=== PATIENT | male | born 1955 | race Caucasian/White ===

== ENCOUNTER 2019-09-29 16:54 | Inpatient (IN) | payer MEDICARE ==
[~2019-09-29 16:54] MED LIST: Dexamethasone 20 MG/5 ML VIAL ONE; Glycopyrrolate 0.2 MG/ML 5 ML SYRINGE ONE; Iopamidol-370 76% 500 ML 1 ML ONE; Lidocaine 1% PF 5 ML VIAL ONE; Ondansetron PF 4 MG/2 ML Vial ONE; PHENYLEPHRINE-NS 100 MCG/ML 10 ML SYRINGE ONE; PROPOFOL 200 MG/20 ML VIAL ONE; Rocuronium Bromide 10 MG/ML (10ML VIAL) ONE; Succinylcholine Chloride 20 MG/ML 10 ml SYRINGE FS ONE
[2019-09-29] MEDS ORDERED: Adacel (T-DAP) 0.5 ML SYRINGE ONE (16:59)
[2019-09-29] MEDS ORDERED: metroNIDAZOLE 500 MG/100 ML BAG ONE (16:59)
[2019-09-29] MEDS ORDERED: Ketorolac Tromethamine 30 MG/ML VIAL ONE (17:04)
[2019-09-29] MEDS ORDERED: Fentanyl 100 MCG/2 ML VIAL ONE ×2 (17:04→21:27)
--- NOTE | 2019-09-29 17:16 | RAD ---
Chest AP view INDICATION: Chest pain COMPARISON: None FINDINGS: Lungs:No airspace consolidation is evident. There is an azygos fissure involving the right upper lobe . Cardiac silhouette:The cardiomediastinal silhouette appears within normal limits. Pulmonary vasculature:Normal Pleural spaces:No pleural effusion or pneumothorax is demonstrated. Upper abdomen:No abnormality seen. Osseous structures: No acute osseous abnormality. Additional findings:Dorsal column stimulator overlying the midthoracic spine. IMPRESSION: No acute cardiopulmonary abnormality.
--- NOTE | 2019-09-29 17:17 | RAD ---
XR Knee Rt 4 View STANDARD: 09/29/2019 5:04 PM CLINICAL INDICATION: Fall from ladder of 15 cc COMPARISON: None. FINDINGS: Bones: No acute fracture is demonstrated. Joints: No joint capsular distention. Mild osteoarthrosis of the right knee.. Soft Tissue: No acute abnormality.. IMPRESSION: No acute osseous abnormality..
--- NOTE | 2019-09-29 17:18 | RAD ---
XR Ankle Rt 3 View STANDARD INDICATION: Fall from ladder COMPARISON: None. FINDINGS: Bones: There is a heavily comminuted calcaneal fracture with impaction of the posterior subtalar join t and articular surface. There is comminution involving the lateral aspect of the calcaneal wall. No additional fractures evident. Ankle mortise: Symmetric. Talar Dome: There is a 2.9 mm osteochondral lesion involving the talar dome. Subtalar joint: As above Visualized hindfoot: As above Periarticular soft tissues: Soft tissue swelling of the posterior hindfoot IMPRESSION: 1. Comminuted, impacted intra-articular calcaneal fracture.
[2019-09-29 17:23] LABS: #Eosinphils 0.1 thou/uL (0.0-0.7); #Lymphocytes 1.3 thou/uL (1.20-3.40); #Monocytes 0.5 thou/uL (0.11-0.59); #Neutrophils 8.3 thou/uL (1.40-6.50); %Basophils 0.2 % (0.0-1.0); %Eosinophils 1.2 % (0.0-10.0); %Lymphocytes 12.4 % (21.0-51.0); %Monocytes 4.6 % (0.0-10.0); %Neutrophils 81.6 % (42.0-75.0); Hemoglobin 12.4 g/dL (14.0-18.0); Mean Corpuscular Hemoglobin 28.7 pg (27.0-31.0); Platelet Count 278 thou/uL (130-400); RBC Distribution Width 12.3 % (11.5-14.5); White Blood Cell (WBC) Count 10.1 thou/uL (4.8-10.8)
[2019-09-29] MEDS ORDERED: diphenhydrAMINE 50 MG/ML VIAL ONE (17:45)
[2019-09-29 17:50] LABS: ALT (SGPT) 18 U/L (8-55); AST (SGOT) 17 U/L (5-34); Albumin 4.1 g/dL (3.4-4.8); Alkaline Phosphatase 74 U/L (40-110); Anion Gap 11 mmol/L (10-20); BUN (Urea Nitrogen) 15 mg/dL (8.4-25.7); Bilirubin, Total 0.3 mg/dL (0.2-1.2); Calc. Creatinine Clearance 0 mL/min (70-130); Calcium 9.2 mg/dL (7.8-10.44); Carbon Dioxide 23 mmol/L (23-31); Chloride 111 mmol/L (98-107); Estimated GFR-MDRD 77; Globulin 2.7 g/dL (2.4-3.5); Glucose 110 mg/dL (80-115); Potassium 3.8 mmol/L (3.5-5.1); Protein, Total 6.8 g/dL (5.8-8.1); Sodium 141 mmol/L (136-145)
[2019-09-29] MEDS ORDERED: Insulin Regular 300 UNITS/3 ML VIAL SC PRN (18:08)
[2019-09-29] MEDS ORDERED: Dextrose 50% Abboject 50 ML SYRINGE SLOW IVP PRN (18:08)
[2019-09-29] MEDS ORDERED: Dextrose 5% in Water 1,000 ML IV PRN (18:08)
[2019-09-29] MEDS ORDERED: Ondansetron PF 4 MG/2 ML Vial IVP PRN ×3 (18:08→21:44)
[2019-09-29] MEDS ORDERED: traMADol HCl 50 MG TAB PO PRN ×2 (18:11)
--- NOTE | 2019-09-29 18:29 | CT ---
CT Brain WO Con: 09/29/2019 5:04 PM CLINICAL HISTORY: Fall from ladder 15 feet. IMAGING TECHNIQUE: Multiple CT images were obtained of the brain without IV contrast. COMPARISON: None. FINDINGS: Brain: No acute infarct or hemorrhage is evident. No midline shift. Ventricles: Normal. No hydrocephalus.. Skull: Intact.. Visualized Paranasal sinuses: Clear.. Mastoid air cells:Clear. Extracranial soft tissues:Normal. IMPRESSION: No acute intracranial abnormality.
--- NOTE | 2019-09-29 18:31 | CT ---
CT Cervical Spine WO Con Indication: Fall with neck pain COMPARISON: None. FINDINGS: Fracture: None. Spinal alignment: No acute malalignment. Craniocervical junction: Within normal limits. Vertebral body heights: Maintained. Cervical spine degenerative change: Mild multilevel cervical spondylosis Lung apices: Clear. IMPRESSION: No acute osseous abnormality.
--- NOTE | 2019-09-29 18:35 | RAD ---
LEFT TIBIA AND FIBULA TWO VIEW: 09/29/19 HISTORY: Fall from ladder. COMPARISON: None. FINDINGS: Transversely oriented fracture of the distal tibia and fibula metaphysis with one half shaft width la teral displacement. There is also a vertical component of the fracture through the distal tibia in th e coronal plane extending to the articular surface. Also a medial malleolar fracture. IMPRESSION: Complex distal tib/fib fracture as described with intra-articular component. POS: HOME
--- NOTE | 2019-09-29 18:38 | CT ---
CT OF THE CHEST, ABDOMEN AND PELVIS WITH IV CONTRAST INDICATION: Fall 15 feet from ladder COMPARISON: None. FINDINGS: CHEST: Lungs:There is a grouping of noncalcified pulmonary nodules within the subpleural location involving the anterior right upper lobe on image 18 series 3. The nodules measure between 4 to 6 mm in size. No additional suspicious pulmonary nodule is evident. There is an azygos lobe. Heart and great vessels:No acute traumatic injury seen. Pleural space: No pneumothorax or effusion. Additional findings: ABDOMEN: Liver:Normal appearing. Spleen:Splenic granulomata. No acute injury. Pancreas:Normal appearing. Adrenal Glands:Normal appearing. Kidneys:Normal appearing. Aorta:There are mild vascular calcifications seen involving the visualized vasculature. Additional findings: Cholecystectomy PELVIS: Bowel:Normal appearing. Bladder:Normal appearing. Reproductive structures:Surgically absent Rectum and perirectal soft tissues:Normal appearing. Additional findings: Mild nonspecific stranding within the central mesentery with shotty appearing l ymph nodes. OSSEOUS STRUCTURES: Postsurgical change of a posterolateral fusion at L4-5. There is a dorsal column stimulator projectin g at T7. No acute fracture or subluxation demonstrated. There is scattered degenerative and osteoarthritic changes. IMPRESSION: 1. No acute traumatic injury seen involving the chest, abdomen or pelvis. 2. Right upper lobe pulmonary nodules. Follow-up CT examination in 6 months is recommended to documen t stability. 3. Postsurgical change of cholecystectomy, prostatectomy and lower back surgery. 4. Nonspecific stranding within the central mesentery with shotty appearing lymph nodes may reflect s clerosing mesenteritis. 5. Findings concerning the trauma packet were called to Dr. Arce at 6:34 PM on September 29, 2019.
[2019-09-29] MEDS ORDERED: Neomycin-Polymyxin 1 ML AMP ONE ×2 (18:45→20:14)
[2019-09-29] MEDS ORDERED: Fentanyl 250 MCG/5 ML VIAL ONE (18:48)
--- NOTE | 2019-09-29 18:52 | PRG ---
DATE OF SERVICE: 09/29/2019 Rigo Reardon is a 63-year-old male, fell off a ladder, suffered an open tib-fib, left distally, and a right calcaneal fracture. He has some thoracolumbar pain. He is undergoing CAT scan for that. He denies any abdominal pain. He did not lose consciousness. The patient is hemodynamically stable. Dr. Rajat Levin has seen him regarding ORIF of his femur and treatment of his calcaneal fracture. Await CAT scan results. His hemoglobin is 12. His has GCS 15. I have discussed with JOEL Gonzalez, Trauma, and I agree with her assessment and plan. Job ID: [id number]
[2019-09-29] MEDS ORDERED: EPINEPHrine 1 MG/ML AMP ONE (20:50)
[2019-09-29] MEDS ORDERED: Bupivacaine PF 0.5% 30 ML VIAL ONE (20:50)
--- NOTE | 2019-09-29 21:03 | RAD ---
EXAM: XR Ankle Lt 3 View STANDARD DATE: 09/29/2019 12:00 AM INDICATION: Fracture repair of the left ankle COMPARISON: Left tibia-fibula radiograph dated September 29, 2019 FINDING: Since the comparison examination there is an interval reduction internal fixation of the di stal tibial metadiaphyseal fracture. Fracture alignment is near anatomic. There is improved alignment of the comminuted distal fibular shaft fracture. There is partial visualization of instrume ntation involving the calcaneus. Total fluoroscopic time was 36.4 seconds. Total exposure was 1.38 mGy. IMPRESSION:ORIF of distal left tibia fracture.
[2019-09-29] MEDS ORDERED: PACU-Morphine 4MG/ML VIAL SLOW IVP PRN (21:16)
[2019-09-29] MEDS ORDERED: Morphine Sulfate 2 MG/ML SYRINGE SLOW IVP PRN (21:16)
[2019-09-29] MEDS ORDERED: Meperidine HCl/PF 25 MG/ML VIAL SLOW IVP PRN (21:16)
[2019-09-29] MEDS ORDERED: HYDROmorphone 2 MG/ML VIAL SLOW IVP PRN (21:16)
[2019-09-29] MEDS ORDERED: Ketorolac Tromethamine 30 MG/ML VIAL IVP PRN (21:16)
[2019-09-29] MEDS ORDERED: Promethazine HCl 25 MG/ML VIAL IM PRN ×2 (21:16→21:44)
[2019-09-29] MEDS ORDERED: Ondansetron HCl/PF 4 MG/2 ML Vial IVP PRN (21:16)
[2019-09-29] MEDS ORDERED: Promethazine HCl 25 MG/ML VIAL SLOW IVP PRN (21:16)
[2019-09-29] MEDS ORDERED: Milk Of Magnesia 30 ML UDCUP PO PRN (21:31)
[2019-09-29] MEDS ORDERED: Fleet Enema 133 ML BOT PR PRN (21:31)
[2019-09-29] MEDS ORDERED: Bisacodyl 10 MG SUPP PR PRN (21:31)
[2019-09-29] MEDS ORDERED: Ondansetron ODT 4 MG TAB PO PRN (21:31)
[2019-09-29] MEDS ORDERED: Cepastat Lozenges 1 LOZ PO PRN (21:31)
[2019-09-29] MEDS ORDERED: HYDROmorphone 2 MG/ML VIAL ONE (21:36)
[2019-09-29] MEDS ORDERED: Naloxone HCl 0.4 mg/ml Vial IV PRN (21:44)
[2019-09-29] MEDS ORDERED: Zolpidem Tartrate 5 MG TAB PO PRN (21:44)
[2019-09-29] MEDS ORDERED: diphenhydrAMINE 25 MG CAP PO PRN (21:44)
[2019-09-29] MEDS ORDERED: diphenhydrAMINE 50 MG/ML VIAL IVP PRN (21:44)
[2019-09-29] MEDS ORDERED: fentaNYL Citrate/PF 2,000 MCG in Sodium Chloride 0.9% 60 ML IV PRN (21:44)
[2019-09-29] MEDS ORDERED: diphenhydrAMINE 50 MG/ML VIAL IM PRN (21:44)
[2019-09-29] MEDS ORDERED: Communication Order-Pharmacy FS SCH (21:45)
[2019-09-29] MEDS ORDERED: HYDROcodone/Acetaminophen 10/325 mg Tablet PO PRN (22:59)
[2019-09-29] MEDS: Famotidine/PF 20 mg/2ml Vial SLOW IVP SCH (23:17)
[2019-09-29] MEDS: Gabapentin 300 MG CAP PO SCH (23:18)
[2019-09-29] MEDS: Senokot S 8.6-50 MG TAB PO SCH (23:18)
[2019-09-29 23:20] VITALS: BMI 33.4
[2019-09-30] MEDS: Sodium Chloride 0.9% 1,000 ML IV SCH ×4 (00:06→19:12)
[2019-09-30] MEDS: Ibuprofen 600 MG TAB PO SCH ×4 (00:07→17:43)
[2019-09-30] MEDS: Acetaminophen 500 MG TAB PO SCH ×4 (00:07→17:43)
[2019-09-30] MEDS: Ketorolac Tromethamine 30 MG/ML VIAL IVP SCH ×4 (00:07→17:44)
[2019-09-30] MEDS: CEFAZOLIN 2 GM in Premix Bag 1 BAG IVPB SCH ×3 (00:08→17:43)
--- NOTE | 2019-09-30 01:19 | OP ---
DATE OF PROCEDURE: 09/29/2019 INDICATIONS: Mr. Reardon is a 63-year-old male who fell 15 feet off a ladder and had immediate pain, deformity with a fracture of the left distal tibia, open and protruding through the medial aspect of the left leg. He also had considerable pain in the right heel area. The patient was life-flighted to the emergency room. X-ray showed fracture of the left distal tibia with intra-articular extension of the distal tibia fracture into the ankle joint and a fracture of the right calcaneus. The patient was given IV antibiotics in the emergency room and is now brought to the OR. PREOPERATIVE DIAGNOSIS: Open left intra-articular fracture of the distal tibia with comminution. POSTOPERATIVE DIAGNOSIS: Open left intra-articular fracture of the distal tibia with comminution. PROCEDURES PERFORMED: 1. Irrigation and debridement of the left leg and tibia using Pulsavac. 2. Open reduction and internal fixation of the left distal tibia. ANESTHESIA: General. DESCRIPTION OF PROCEDURE: The patient was given preoperative IV antibiotics. He was taken to the operating room. Satisfactory general anesthesia was performed. The left lower extremity was sterilely prepped and draped in usual fashion. After exsanguination, tourniquet at the left thigh was raised to 300 mmHg. The patient had an open wound on the medial aspect of the left lower leg. It was extended from that laceration down to the medial malleolar area. This additional incision was approximately 3 inches in length. The initial open wound was approximately 7 inches in length. There was some debris in the wound and the portion of the tibia that was protruding through the skin had some comminution. The wound was copiously irrigated with antibiotic solution using the high-speed application integrator. The saphenous vein had been torn and it was tied off with suture. A bone clamp was placed from anterior to posterior because of an intra-articular fracture of the distal tibia that divided the distal tibia into anterior and posterior half and extended all the way into the ankle joint. The bone clamp was used to hold and reduce and then internally fix using 4.0 cannulated screws from anterior to posterior. This was all performed under fluoroscopic visualization using C-arm. The distal tibia was then reduced with the distal shaft and initially was temporarily fixated with a 4-hole Synthes distal tibial locking plate. Morselized allograft bone graft was then placed into the defect on the medial aspect of the distal tibial shaft and the 4-hole plate was then internally fixed initially using a 3.5 cortical screw to bring the plate up to the medial aspect of the tibia. Six of the 2.7 locking screws were placed distally and three of 3.5 locking screws were placed into the shaft. Again, this was all performed under fluoroscopic visualization, which showed good alignment of the distal tibia and proper placement of the plate and screws. There was significant comminution of the distal fibula, but the fragments were in adequate alignment and did not feel that it is warranted to open the lateral aspect since he already had such a large wound medially. The wound again was irrigated and then closed using 0 Vicryl for the fat and subcutaneous tissue, and skin was closed with skin nereyda. The wound was then infiltrated with 0.5% Marcaine with epinephrine. A total of 30 mL was used around the wound for postoperative analgesia. Sterile dressing was applied. Tourniquet was released. The patient was placed in a tall boot. He was awakened, extubated, and transferred to recovery room in stable condition. ESTIMATED BLOOD LOSS: 100 mL. COMPLICATIONS: None. Job ID: [id number]
[2019-09-30 05:59] LABS: Mean Corpuscular HGB CONC 32.9 g/dL (32.0-36.0); Mean Corpuscular Hemoglobin 29.1 pg (27.0-31.0); Mean Corpuscular Volume 88.5 fL (78.0-98.0); Mean Platelet Volume 8.2 fL (7.4-10.4); Platelet Count 249 thou/uL (130-400); RBC Distribution Width 12.5 % (11.5-14.5); Red Blood Cell (RBC) Count 3.78 mill/uL (4.70-6.10); White Blood Cell (WBC) Count 12.8 thou/uL (4.8-10.8)
[2019-09-30] MEDS: Aspirin 325 MG TAB PO SCH ×2 (08:35→20:15)
[2019-09-30] MEDS: Famotidine/PF 20 mg/2ml Vial SLOW IVP SCH ×2 (08:35→20:15)
[2019-09-30] MEDS: Ferrous Gluconate 324 MG TAB PO SCH ×2 (08:35→20:16)
[2019-09-30] MEDS: Gabapentin 300 MG CAP PO SCH ×2 (08:36→20:16)
[2019-09-30] MEDS: Multivitamin W/ Minerals 1 TAB PO SCH (08:36)
[2019-09-30] MEDS: Polyethylene Glycol 3350 17 GM Packet PO SCH (08:38)
[2019-09-30] MEDS: Senokot S 8.6-50 MG TAB PO SCH ×4 (08:38→20:16)
--- NOTE | 2019-09-30 12:33 | PRG ---
DATE OF SERVICE: 09/30/2019 SUBJECTIVE: Mr. Reardon is a 63-year-old male, presented to ED after a fall with a height of 15 feet. The patient sustained left open tib-fib fracture and right calcaneus fracture. The patient underwent ORIF of both fracture. Postop day 1 today. Postop, the patient reports pain is well controlled. He tolerated with regular diet. He developed no fever or shortness of breath, not yet have bowel. PHYSICAL EXAMINATION: GENERAL: Currently, the patient is lying in bed comfortable with no acute respiratory distress. VITAL SIGNS: Stable. LUNGS: Clear bilaterally. HEART: Regular rate and rhythm. ABDOMEN: Soft and nondistended. EXTREMITIES: Bilateral lower extremity postop dressing and splint intact. Dry, clean, intact. Toe is pink. Sensation intact. The patient can wiggle toe bilaterally with no acute difficulty. ASSESSMENT: 1. Status post fall from 15 feet. 2. Left open tib-fib fracture, status post open reduction and internal fixation of left open tib-fib fracture, postop day 1. 3. Right calcaneus fracture, status post open reduction and internal fixation of right calcaneus fracture, postop day 1. 4. Acute traumatic pain due to above, improved. PLAN: Continue supportive care. Continue pain control. Continue DVT prophylaxis. The patient will be working with PT/OT today. Anticipate placement in rehabilitation facility. Job ID: [id number]
[2019-09-30] MEDS: Enoxaparin Sodium 40 MG/0.4 ML SYRINGE SC SCH (20:15)
[2019-10-01] MEDS: Ibuprofen 600 MG TAB PO SCH ×4 (00:38→17:12)
[2019-10-01] MEDS: Sodium Chloride 0.9% 1,000 ML IV SCH (00:40)
[2019-10-01] MEDS: Acetaminophen 500 MG TAB PO SCH ×5 (00:40→17:36)
[2019-10-01] MEDS: CEFAZOLIN 2 GM in Premix Bag 1 BAG IVPB SCH ×2 (00:40→08:25)
[2019-10-01 05:11] LABS: #Eosinphils 0.2 thou/uL (0.0-0.7); #Lymphocytes 1.3 thou/uL (1.20-3.40); #Monocytes 0.5 thou/uL (0.11-0.59); #Neutrophils 5.3 thou/uL (1.40-6.50); %Basophils 0.3 % (0.0-1.0); %Eosinophils 2.8 % (0.0-10.0); %Lymphocytes 17.4 % (21.0-51.0); %Neutrophils 72.5 % (42.0-75.0); Hemoglobin 9.2 g/dL (14.0-18.0); Mean Corpuscular HGB CONC 32.7 g/dL (32.0-36.0); Mean Corpuscular Hemoglobin 29.3 pg (27.0-31.0); Mean Corpuscular Volume 89.6 fL (78.0-98.0); Platelet Count 202 thou/uL (130-400); RBC Distribution Width 12.4 % (11.5-14.5); Red Blood Cell (RBC) Count 3.14 mill/uL (4.70-6.10); White Blood Cell (WBC) Count 7.3 thou/uL (4.8-10.8)
[2019-10-01 05:32] LABS: Magnesium 2.1 mg/dL (1.6-2.6); Phosphorus 2.6 mg/dL (2.3-4.7)
[2019-10-01 05:51] LABS: Anion Gap 11 mmol/L (10-20); BUN (Urea Nitrogen) 12 mg/dL (8.4-25.7); Calc. Creatinine Clearance 150 mL/min (70-130); Calcium 8.4 mg/dL (7.8-10.44); Carbon Dioxide 24 mmol/L (23-31); Chloride 111 mmol/L (98-107); Estimated GFR-MDRD Greater than 90; Glucose 133 mg/dL (80-115); Potassium 3.8 mmol/L (3.5-5.1); Sodium 142 mmol/L (136-145)
--- NOTE | 2019-10-01 05:55 | PRG ---
DATE OF SERVICE: 10/01/2019 SUBJECTIVE: The patient is currently on the surgical floor. He is status post open reduction and internal fixation of a left open tib-fib fracture and closed treatment of the right calcaneus fracture. The patient is currently on the surgical floor. He is doing well. His pain is controlled. He is tolerating a diet, and he has begun working with Physical and Occupational Therapy. There was noted on review of his medications that he may have received doses of both ibuprofen and Toradol, in light of that, we will continue IV hydration, and check his renal status. This is addressed with the nurses also. PHYSICAL EXAMINATION: VITAL SIGNS: Stable. The patient is afebrile. GENERAL: The patient is resting comfortably in bed. He appears in no distress. RESPIRATORY: His respirations are nonlabored. His postop dressing is clean, dry, and intact. ASSESSMENT: 1. Status post fall from approximately 15 feet. 2. Status post irrigation, open reduction and internal fixation of left open tib-fib fracture. 3. Status post splinting of right calcaneus fracture. PLAN: Plan will be to continue supportive care. Check his labs this morning. Encourage physical and occupational therapy as much as possible in light of the patient being nonweightbearing on both lower extremities. Placement will be discussed. Job ID: [id number]
[2019-10-01] MEDS ORDERED: Sodium Chloride 0.9% 1,000 ML IV SCH (06:12)
[2019-10-01] MEDS: Senokot S 8.6-50 MG TAB PO SCH ×4 (08:24→20:01)
[2019-10-01] MEDS: Multivitamin W/ Minerals 1 TAB PO SCH (08:24)
[2019-10-01] MEDS: Gabapentin 300 MG CAP PO SCH ×2 (08:25→20:01)
[2019-10-01] MEDS: Ferrous Gluconate 324 MG TAB PO SCH ×2 (08:25→20:00)
[2019-10-01] MEDS: Polyethylene Glycol 3350 17 GM Packet PO SCH (08:25)
[2019-10-01] MEDS: Famotidine/PF 20 mg/2ml Vial SLOW IVP SCH ×2 (08:25→20:00)
[2019-10-01] MEDS: Aspirin 325 MG TAB PO SCH ×2 (08:25→20:00)
[2019-10-01] MEDS ORDERED: Bisacodyl 10 MG SUPP PR SCH (09:45)
--- NOTE | 2019-10-01 12:28 | PRG ---
DATE OF SERVICE: 10/01/2019 SUBJECTIVE: Mr. Reardon is a 63-year-old male, presented to the ED after a fall from the height of 15 feet. He sustained left open tib-fib fracture and right calcaneus fracture. The patient underwent ORIF of bilateral lower extremity fractures, postop day 2. Today postoperatively, the patient reports pain is well controlled, tolerating regular diet. Developed no fever or shortness of breath. Urine is adequate and still not yet had bowel. OBJECTIVE: GENERAL: The patient is lying in bed, comfortable, with no acute respiratory distress. VITAL SIGNS: Temperature 98, heart rate 78, O2 saturation 94% on room air, respiratory rate 18, blood pressure 145/78. LUNGS: Clear bilaterally. HEART: Regular rate and rhythm. ABDOMEN: Soft and nondistended. EXTREMITIES: Bilateral lower extremity postop dressing, in a splint, dry, clean, and intact. Neurovascularly intact x4. ASSESSMENT: 1. Status post fall from 15 feet, left open tib-fib fracture, status post open reduction and internal fixation of left open tib-fib fracture. 2. Right calcaneus fracture, status post open reduction and internal fixation of right calcaneus fracture. 3. Acute traumatic pain, improved. PLAN: Continue supportive care. Continue pain control. Continue DVT prophylaxis. Placement in rehabilitation facility is pending. The patient will have lactulose today to promote bowel function. Job ID: [id number]
[2019-10-01] MEDS: HYDROcodone/Acetaminophen 10/325 mg Tablet PO PRN (17:42)
[2019-10-01] MEDS: Enoxaparin Sodium 40 MG/0.4 ML SYRINGE SC SCH (20:00)
--- NOTE | 2019-10-01 20:00 | PRG ---
DATE OF SERVICE: 10/01/2019 SUBJECTIVE: The patient is 2 days status post irrigation and debridement and open reduction and internal fixation of the left distal tibia fracture. The patient also sustained a right calcaneal fracture that did not require surgery. He has been working with physical therapy to use a transferring board since he needs to be nonweightbearing on both lower extremities. The patient does complain of constipation. OBJECTIVE: VITAL SIGNS: Temperature 97.7, pulse 80, respiratory rate 18, blood pressure 137/75. LABORATORY DATA: This morning, hemoglobin 9.2, hematocrit 28.1. Both feet are neurovascularly intact. The patient will continue to work with physical therapy, learning how to transfer, in and out of bed, in a wheelchair. He needs to continue to be nonweightbearing on both feet. Job ID: [id number]
[2019-10-01] MEDS ORDERED: DEXTROAMPHETAMINE PO SCH (21:00)
[2019-10-01] MEDS ORDERED: AMPHETAMINE PO SCH (21:00)
--- NOTE | 2019-10-02 02:19 | PRG ---
DATE OF SERVICE: 10/02/2019 SUBJECTIVE: The patient remains on the surgical floor. He is status post fall from approximately 15 feet, which he sustained an open left tib-fib fracture and a right calcaneus fracture. He has undergone open reduction and internal fixation and irrigation and debridement of his open tib-fib fracture and his calcaneus is being treated nonoperatively. Unfortunately, he is nonweightbearing on both extremities, but he has been working with physical therapy as much as possible. The nurses report that his pain is controlled, and he is tolerating a diet. PHYSICAL EXAMINATION: VITAL SIGNS: Stable. The patient is afebrile. GENERAL: The patient is asleep in bed. He appears in no distress. RESPIRATORY: His respirations are nonlabored. I did not awaken him for exam. ASSESSMENT: 1. Status post fall from approximately 15 feet. 2. Status post irrigation, open reduction and internal fixation of left open tib-fib fracture. 3. Status post right calcaneus fracture, treated conservatively. PLAN: Will be to continue supportive care with physical and occupational therapy and discuss placement options. Job ID: [id number]
[2019-10-02] MEDS: Ibuprofen 600 MG TAB PO SCH ×2 (02:53→09:38)
[2019-10-02 05:04] LABS: #Eosinphils 0.3 thou/uL (0.0-0.7); #Lymphocytes 0.9 thou/uL (1.20-3.40); #Monocytes 0.5 thou/uL (0.11-0.59); #Neutrophils 5.5 thou/uL (1.40-6.50); %Basophils 0.4 % (0.0-1.0); %Eosinophils 4.1 % (0.0-10.0); %Lymphocytes 12.8 % (21.0-51.0); %Monocytes 7.2 % (0.0-10.0); %Neutrophils 75.5 % (42.0-75.0); Hemoglobin 9.6 g/dL (14.0-18.0); Mean Corpuscular HGB CONC 32.5 g/dL (32.0-36.0); Mean Corpuscular Volume 89.2 fL (78.0-98.0); Mean Platelet Volume 7.8 fL (7.4-10.4); Platelet Count 212 thou/uL (130-400); RBC Distribution Width 12.5 % (11.5-14.5); Red Blood Cell (RBC) Count 3.31 mill/uL (4.70-6.10); White Blood Cell (WBC) Count 7.2 thou/uL (4.8-10.8)
[2019-10-02 05:22] LABS: Anion Gap 10 mmol/L (10-20); BUN (Urea Nitrogen) 8 mg/dL (8.4-25.7); Calc. Creatinine Clearance 168 mL/min (70-130); Calcium 8.8 mg/dL (7.8-10.44); Carbon Dioxide 27 mmol/L (23-31); Chloride 105 mmol/L (98-107); Estimated GFR-MDRD Greater than 90; Glucose 102 mg/dL (80-115); Phosphorus 2.5 mg/dL (2.3-4.7); Potassium 3.4 mmol/L (3.5-5.1); Sodium 139 mmol/L (136-145)
[2019-10-02] MEDS: AMPHETAMINE PO SCH ×2 (05:49→16:05)
[2019-10-02] MEDS: DEXTROAMPHETAMINE PO SCH ×2 (05:49→16:05)
[2019-10-02] MEDS: Acetaminophen 500 MG TAB PO SCH ×2 (05:49→11:56)
[2019-10-02] MEDS: HYDROcodone/Acetaminophen 10/325 mg Tablet PO PRN (06:13)
--- NOTE | 2019-10-02 07:24 | HP ---
REQUESTING PHYSICIAN: Geronimo Arce DO CONSULTING PHYSICIAN: Dr. Levin. ATTENDING PHYSICIAN: Dr. Medley. HISTORY OF PRESENT ILLNESS: Mr. Reardon is a 63-year-old male, coming to the ED after an incident falling from a ladder with a height of approximately 15 feet. The patient reports he was climbing on a ladder at the height of 15 feet, lost his balance, and fell on his feet. After the fall, no loss of consciousness, pain of bilateral lower extremity. No back pain at that time. He did not hit his head or other parts of his body. Upon arrival in the ED, the patient is alert, awake, GCS 15. Vital signs stable. Complain pain of bilateral lower extremity. REVIEW OF SYSTEMS: Noncontributory except per HPI. PAST MEDICAL HISTORY: Includes PTSD, anxiety. PAST SURGICAL HISTORY: Right hernia repair, prostate cancer. SOCIAL HISTORY: The patient lives at home with family. Denies drug use. Denies alcohol and denies smoking. PHYSICAL EXAMINATION: GENERAL: The patient lying in bed comfortable. No acute respiratory distress. SKIN: [place]. HEENT: Atraumatic. No bruising. No tender to palpation. No bleeding. Pupil 3 mm, reactive to light, equal bilaterally. NECK: Trachea midline. No tender to palpation. CHEST: No bruising. No crepitus. No tender to palpation. LUNGS: Clear bilaterally. HEART: Regular rate and rhythm. ABDOMEN: Soft, nondistended. No rebound. No tender to palpation. Bowel sounds active. PELVIS: Stable. EXTREMITIES: Bilateral lower extremity is on splint, dry, and intact. Sensation of bilateral toe is intact. Toe bilateral pink. Capillary refill is normal. Upper extremity, neurovascularly intact x2. NEUROLOGIC: No focal neurologic deficits. LABORATORY DATA: Initial workup show CT scan of cervical spine, no acute abnormalities. CT scan of brain, no acute abnormality. X-ray of ankle, right, show comminuted, impacted, intra-articular calcaneal fracture. Chest x-ray, no acute abnormality. ASSESSMENT: 1. Status post fall from 15 feet. 2. Complex distal tibia-fibula fracture. 3. Right comminuted impacted intra-articular calcaneal fracture. PLAN: The patient will go to the OR with orthopedic Dr. Levin after this dictation. The patient will be admitted to [facility] after surgery for pain control. DVT prophylaxis, gastritis prophylaxis. The patient will be working with PT/OT tomorrow. Anticipate placement in rehabilitation facility. Job ID: [id number]
[2019-10-02] MEDS ORDERED: Losartan 25 MG TAB PO SCH (09:00)
[2019-10-02] MEDS ORDERED: Escitalopram Oxalate 20 mg Tablet PO SCH (09:00)
[2019-10-02] MEDS ORDERED: Thyroid 60 MG TAB PO SCH (09:00)
[2019-10-02] MEDS ORDERED: Allopurinol 100 MG TAB PO SCH (09:00)
[2019-10-02] MEDS: Multivitamin W/ Minerals 1 TAB PO SCH (09:37)
[2019-10-02] MEDS: Gabapentin 300 MG CAP PO SCH (09:37)
[2019-10-02] MEDS: Aspirin 325 MG TAB PO SCH (09:37)
[2019-10-02] MEDS: Polyethylene Glycol 3350 17 GM Packet PO SCH (09:38)
[2019-10-02] MEDS: Senokot S 8.6-50 MG TAB PO SCH ×2 (09:38→09:46)
[2019-10-02] MEDS: Ferrous Gluconate 324 MG TAB PO SCH (09:39)
[2019-10-02] MEDS: Famotidine/PF 20 mg/2ml Vial SLOW IVP SCH (09:39)
[2019-10-02] MEDS ORDERED: Ibuprofen 800 MG TAB PO PRN (09:55)
[2019-10-02 15:34] VITALS: BP 150/78; TEMP 98.1
[2019-10-02] MEDS ORDERED: Rosuvastatin 10 MG TAB PO SCH (21:00)
--- NOTE | 2019-10-03 05:21 | DIS ---
DATE OF ADMISSION: 09/29/2019 DATE OF DISCHARGE: 10/02/2019 ADMISSION DIAGNOSES: 1. Status post fall from 15 feet. 2. Left open tib-fib fracture. 3. Right calcaneus fracture. 4. History of hypertension and gout. DISCHARGE DIAGNOSES: 1. Status post fall from 15 feet ladder. 2. Left open tib-fib fracture, status post open reduction and internal fixation of left open tib-fib fracture. 3. Right calcaneus fracture, status post open reduction and internal fixation of right calcaneus fracture. 4. History of hypertension and gout. CONSULTING PHYSICIAN: Dr. Levin. PROCEDURE: Irrigation and debridement of the left leg and open reduction and internal fixation of left distal tibia. HOSPITAL COURSE: Mr. Reardon is a 63-year-old male, who presented to the ED after a fall from a 15 feet ladder. The patient sustained left open tib-fib fracture and right calcaneus fracture. The patient underwent ORIF of left tib-fib fracture, right calcaneus fracture is treated conservatively. The patient tolerated the procedure well. Postop, the patient reports he has been doing good. Pain is well controlled. He is able to work with PT/OT. He tolerated his regular diet. He developed no fever or shortness of breath and his urine is adequate. His vital signs have been stable. PHYSICAL EXAMINATION: GENERAL: The patient is lying in bed comfortable with no acute respiratory distress. VITAL SIGNS: Temperature 98.6, heart rate 83, respiratory rate 18, O2 saturation 95% on room air, and blood pressure 151/81. LUNGS: Clear bilaterally. HEART: Regular rate and rhythm. ABDOMEN: Soft and nondistended. EXTREMITIES: Left lower extremity postop dressing clean, dry, intact. Right calcaneus fracture, this is on boot. DISCHARGE DISPOSITION: Home with home health. DISCHARGE CONDITION: Fair. DISCHARGE INSTRUCTIONS: The patient is to take medication as directed. Encourage activity. The patient is to see Dr. Levin in 10 days. The patient is to have regular diet. The patient is to be nonweightbearing of bilateral lower extremity. DISCHARGE MEDICATIONS: Tramadol, gabapentin, and aspirin. Resume all home medications. Job ID: [id number]
== END 2019-10-02 18:13 | disposition home health service (06) | DRG 494 ==
LOC: ERS 16:54 → SURG A 18:24 → SDC/OP 18:48 → SURG A 22:42
PROVIDERS: ADMIT Specialist; ATTEND Specialist
PROC: 0QSH04Z Reposition Left Tibia with Internal Fixation Device, Open Approach (ICD-10-PCS; principal; 2019-09-29)
DX: S82.252B Displaced comminuted fracture of shaft of left tibia, initial encounter for open fracture type I or II (principal); S92.061A Displaced intraarticular fracture of right calcaneus, initial encounter for closed fracture; W11.XXXA Fall on and from ladder, initial encounter; F43.10 Post-traumatic stress disorder, unspecified; F41.9 Anxiety disorder, unspecified; I10 Essential (primary) hypertension; E78.5 Hyperlipidemia, unspecified; E03.9 Hypothyroidism, unspecified; E66.01 Morbid (severe) obesity due to excess calories; M10.9 Gout, unspecified; Z85.46 Personal history of malignant neoplasm of prostate; Z68.33 Body mass index [BMI] 33.0-33.9, adult
CPT/HCPCS: 27788; 27825; 28400; 36415; 36416; 70450; 71045; 71260; 72125; 74177; 76000; 80048; 80053; 83735; 84100; 85025; 85027; 90471; 90715; 93005; 96365; 96374; 96375; 99152; 99153; C1713; C1769; G0390; J0171; J0690; J1100; J1170; J1200; J1650; J1885; J1956; J2001; J2405; J2704; J3010; J3370; J3490; Q9967; S0020; S0028

== ENCOUNTER 2019-10-17 21:57 | Inpatient (IN) | payer MEDICARE ==
[2019-10-17 22:45] LABS: #Basophils 0.1 thou/uL (0.0-0.2); #Eosinphils 0.4 thou/uL (0.0-0.7); #Lymphocytes 1.9 thou/uL (1.20-3.40); #Monocytes 0.4 thou/uL (0.11-0.59); #Neutrophils 5.4 thou/uL (1.40-6.50); %Basophils 1.2 % (0.0-1.0); %Eosinophils 4.6 % (0.0-10.0); %Lymphocytes 22.7 % (21.0-51.0); %Monocytes 5.2 % (0.0-10.0); %Neutrophils 66.3 % (42.0-75.0); Hemoglobin 11.4 g/dL (14.0-18.0); Mean Corpuscular HGB CONC 31.9 g/dL (32.0-36.0); Mean Corpuscular Hemoglobin 27.5 pg (27.0-31.0); Mean Corpuscular Volume 86.1 fL (78.0-98.0); Mean Platelet Volume 7.1 fL (7.4-10.4); Platelet Count 568 thou/uL (130-400); RBC Distribution Width 12.9 % (11.5-14.5); Red Blood Cell (RBC) Count 4.15 mill/uL (4.70-6.10); White Blood Cell (WBC) Count 8.2 thou/uL (4.8-10.8)
[2019-10-17 23:11] LABS: ALT (SGPT) 13 U/L (8-55); AST (SGOT) 10 U/L (5-34); Albumin 4.1 g/dL (3.4-4.8); Alkaline Phosphatase 131 U/L (40-110); Anion Gap 13 mmol/L (10-20); BUN (Urea Nitrogen) 18 mg/dL (8.4-25.7); Bilirubin, Total 0.2 mg/dL (0.2-1.2); Calc. Creatinine Clearance 0 mL/min (70-130); Calcium 9.7 mg/dL (7.8-10.44); Carbon Dioxide 29 mmol/L (23-31); Chloride 103 mmol/L (98-107); Estimated GFR-MDRD 83; Globulin 3.6 g/dL (2.4-3.5); Glucose 138 mg/dL (80-115); Potassium 4.2 mmol/L (3.5-5.1); Protein, Total 7.7 g/dL (5.8-8.1); Sodium 141 mmol/L (136-145)
[2019-10-17] MEDS ORDERED: Ondansetron PF 4 MG/2 ML Vial ONE (23:31)
[2019-10-17] MEDS ORDERED: CEFAZOLIN 1 GM VIAL ONE (23:31)
[2019-10-17] MEDS ORDERED: Morphine 4 MG/ML VIAL ONE (23:31)
--- NOTE | 2019-10-17 23:42 | RAD ---
XR Ankle Lt 3 View STANDARD HISTORY: Left leg infection after surgery. COMPARISON: 09/29/2019 study. FINDINGS: Open reduction internal fixation of a distal tibial fracture with plate and screws are note d. A distal fibular fractures again visualized. Postoperative changes of the calcaneus are also seen. There are no definite features that would suggest osteomyelitis. IMPRESSION: No plain film evidence for osteomyelitis.
[2019-10-18 00:07] LABS: Bilirubin Negative (Negative); Blood, Urine Negative (Negative); Clarity Clear (Clear); Glucose, Urine (Dipstick) Normal (Negative); Leukocyte Negative Leu/uL (Negative); Nitrite Negative (Negative); Protein, Urine (Dipstick) Negative (Neg-Trace); Urobilinogen Normal mg/dL (Less than 2)
[2019-10-18] MEDS ORDERED: Cefepime 2 GM VIAL ONE (01:04)
--- NOTE | 2019-10-18 02:49 | PDOC.HHP ---
Hospitalist HPI - History of Present Illness Wound dehiscence History of Present Illness: Patient is a 63 year old male with PTSD, anxiety who presents to ED for L foot wound dehiscence and rash. Patient injury started after falling off ladder on , had a L tib fib fracture and calcaneal fx and went to surgery that day with Dr Levin, who did ORIF of L distal tibia. Patient did well after surgery and went home, was caring for wound with no issues, changed dressing every 2 days and last change on Wednesday was normal. today when changing, he observed that there was a rash around wound and it had dehisced and was open. His pain is controlled on medication but was painful at home. No fevers chills SOB chest pain. I discussed with examination scorer orthopedics Dr Lake who recommended cover with dry gauze and notify primary surgeon first thing in AM. Hospitalist ROS - Review of Systems Constitutional: denies: fever, chills, sweats, weakness, malaise, other Eyes: denies: pain, vision change, conjunctivae inflammation, eyelid inflammation, redness, other ENT: denies: ear pain, ear discharge, nose pain, nose discharge, nose congestion , mouth pain, mouth swelling, throat pain, throat swelling, other Respiratory: denies: cough, dry, shortness of breath, hemoptysis, SOB with excertion, pleuritic pain, sputum, wheezing, other Cardiovascular: denies: chest pain, palpitations, orthopnea, paroxysmal noc. dyspnea, edema, light headedness, other Gastrointestinal: denies: nausea, vomiting, abdominal pain, diarrhea, constipation, melena, hematochezia, other Genitourinary: denies: dysuria, frequency, incontinence, hematuria, retention, other Musculoskeletal: reports: foot pain Skin: reports: rash, lesions Neurological: denies: weakness, numbness, incoordination, change in speech, confusion, seizures, other All other systems reviewed; all pertinent +/- noted in HPI/Subj - Medication Medications: reviewed as able Hospitalist History - Past Medical History Psych: reports: Anxiety - Past Surgical History Other Surgical History: foot surgery hernia repair prostate cancer - Family History Family History: reports: no pertinent history - Social History Smoking Status: Never smoker Alcohol: reports: None Drugs: reports: none - Exam General Appearance: NAD, awake alert Eye: PERRL, anicteric sclera ENT: normocephalic atraumatic, no oropharyngeal lesions, moist mucosa Neck: supple, symmetric, no JVD, no thyromegaly, no lymphadenopathy, no carotid bruit Heart: RRR, no murmur, no gallops, no rubs, normal peripheral pulses Respiratory: CTAB, no wheezes, no rales, no ronchi, normal chest expansion, no tachypnea, normal percussion Gastrointestinal: soft, non-tender, non-distended, normal bowel sounds, no palpable masses, no hepatomegaly, no splenomegaly, no bruit Extremities: no cyanosis, no clubbing, no edema Extremities - other findings: L foot with large dehisced wound with dry gangrene underneath Neurological: cranial nerve grossly intact, normal sensation to touch, no weakness, no focal deficits, no new deficit Musculoskeletal: normal tone, normal strength, no muscle wasting Psychiatric: normal affect, normal behavior, A&O x 3 Hospitalist Results - Labs Result Diagrams: 10/17/19 22:35 10/17/19 22:35 Lab results: WBC 8.2 thou/uL (4.8-10.8) 10/17/19 22:35 Hgb 11.4 g/dL (14.0-18.0) L 10/17/19 22:35 Hct 35.8 % (42.0-52.0) L 10/17/19 22:35 MCV 86.1 fL (78.0-98.0) 10/17/19 22:35 Plt Count 568 thou/uL (130-400) H 10/17/19 22:35 Neutrophils % 66.3 % (42.0-75.0) 10/17/19 22:35 ESR Westergren 46 mm/hr (Less than 20) 10/18/19 00:00 Sodium 141 mmol/L (136-145) 10/17/19 22:35 Potassium 4.2 mmol/L (3.5-5.1) 10/17/19 22:35 Chloride 103 mmol/L (98-107) 10/17/19 22:35 Carbon Dioxide 29 mmol/L (23-31) 10/17/19 22:35 BUN 18 mg/dL (8.4-25.7) 10/17/19 22:35 Creatinine 0.93 mg/dL (0.7-1.3) 10/17/19 22:35 Glucose 138 mg/dL (80-115) H 10/17/19 22:35 Lactic Acid 1.4 mmol/L (0.5-2.2) 10/17/19 23:34 Calcium 9.7 mg/dL (7.8-10.44) 10/17/19 22:35 Total Bilirubin 0.2 mg/dL (0.2-1.2) 10/17/19 22:35 AST 10 U/L (5-34) 10/17/19 22:35 ALT 13 U/L (8-55) 10/17/19 22:35 Alkaline Phosphatase 131 U/L (40-110) H 10/17/19 22:35 C-Reactive Protein 2.40 mg/dL (= or < 0.5) H 10/18/19 00:00 Serum Total Protein 7.7 g/dL (5.8-8.1) 10/17/19 22:35 Albumin 4.1 g/dL (3.4-4.8) 10/17/19 22:35 Urine Ketones Negative mg/dL (Negative) 10/17/19 23:50 Urine Blood Negative (Negative) 10/17/19 23:50 Urine Nitrite Negative (Negative) 10/17/19 23:50 Ur Leukocyte Esterase Negative Dorcas/uL (Negative) 10/17/19 23:50 Hospitalist H&P A/P - Plan Plan: Patient is a 63 year old male with PTSD, anxiety who presents to ED for L foot wound dehiscence and rash. # L tibial fx s/p ORIF 09/29 w/ wound dehiscence and cellulitis and dry gangrene - admit to floor - call Dr Levin at 8am - started vanc/unasyn, follow blood and wound cx - resume home meds as appropriate once med rec complete # HTN - PRNs ordered # anxiety/PTSD - resume home meds when ready to resume
[2019-10-18] MEDS ORDERED: Morphine 4 MG/ML VIAL ONE (03:50)
[2019-10-18] MEDS ORDERED: Senokot S 8.6-50 MG TAB PO PRN (07:02)
[2019-10-18] MEDS ORDERED: Bisacodyl 5 MG TAB PO PRN (07:02)
[2019-10-18] MEDS ORDERED: Pharmacy to Dose -VANCOMYCIN IVPB PRN (07:05)
[2019-10-18] MEDS ORDERED: cloNIDine 0.1 MG TAB PO PRN (07:05)
[2019-10-18] MEDS ORDERED: Promethazine HCl 12.5 MG in Sodium Chloride 0.9% 50 ML IVPB PRN (07:05)
[2019-10-18] MEDS ORDERED: hydrALAZINE 20 MG/ML VIAL SLOW IVP PRN (07:05)
[2019-10-18] MEDS ORDERED: Ondansetron PF 4 MG/2 ML Vial IVP PRN (07:05)
[2019-10-18] MEDS ORDERED: Morphine 2 MG/ML SYRINGE SLOW IVP PRN (07:12)
[2019-10-18 08:13] VITALS: BMI 30.7
[2019-10-18] MEDS: HYDROcodone/Acetaminophen 5/325 mg Tablet PO PRN ×2 (08:13→17:20)
--- NOTE | 2019-10-18 08:51 | ULT ---
PRELIMINARY REPORT/[facility]/EMERGENCY AFTER HOURS PROCEDURE: EXAM: US Duplex left Lower Extremity Veins. CLINICAL HISTORY: Recent fall from ladder causing wound on lower lt leg, pain/redness/edema TECHNIQUE: Real-time ultrasound scan of the veins of the left lower extremity with color Doppler flow, spectral waveform analysis and compression. COMPARISON: None provided. FINDINGS: DEEP VEINS: The common femoral, femoral, and popliteal veins are echolucent and compressible. These v essels demonstrate respiratory variation and augmentation. There is normal color Doppler flow through out. The visualized calf veins are also patent. SUPERFICIAL VEINS: The visualized greater saphenous vein is patent. SOFT TISSUES: No popliteal fossa cyst or other abnormalities. IMPRESSION: No deep venous thrombosis in the left lower extremity. ELECTRONICALLY SIGNED BY: Fly Olivia MD Oct 18, 2019 1:26:34 AM COMMERCIAL LOAN SPECIALIST This report is intended for review by the ordering physician only, in accordance of law. If you recei ve this report in error, please call [facility] at [phone]. FINAL REPORT EMERGENCY AFTER HOURS LEFT LOWER EXTREMITY VENOUS ULTRASOUND: FINDINGS/IMPRESSION: I agree with the findings and impression given in the preliminary report per [facility] physici an. No evidence of deep venous thrombosis.
[2019-10-18] MEDS: Ampicillin/Sulbactam 3 GM in Sodium Chloride 0.9% 100 ML IVPB SCH ×3 (10:06→22:02)
[2019-10-18] MEDS: Acetaminophen 325 MG TAB PO PRN ×2 (10:06→19:05)
[2019-10-18] MEDS: Vancomycin HCl 1.75 GM in Sodium Chloride 0.9% 500 ML IVPB SCH (10:54)
[2019-10-18] MEDS ORDERED: HYDROcodone/Acetaminophen 5/325 mg Tablet PO PRN (12:00)
[2019-10-18] MEDS: Polyethylene Glycol 3350 17 GM Packet PO SCH (14:14)
--- NOTE | 2019-10-18 16:52 | CON ---
DATE OF CONSULTATION: 10/18/2019 HISTORY OF PRESENT ILLNESS: Mr. Reardon is a 63-year-old male, who had sustained an open distal left tibia and fibula fracture with the distal shaft of the tibia protruding through the leg. The patient underwent irrigation and debridement of the left tibia on 10/02/2019. He also sustained a right calcaneal fracture and has been nonweightbearing on both feet. The patient was seen by me 1 week after surgery and his laceration of incision on the medial aspect of the left ankle was healing well. He was seen by me 2 weeks after the surgery, and again it was looking well. The patient changed the dressing on day of admission, and found to have a rash around the wound. The wound was dehisced, was opened and there was necrotic tissue in the wound. The patient was brought to the emergency room. The wound was cultured. The patient was started on IV antibiotics. The patient denies any fever or chills. PHYSICAL EXAMINATION: On examination of the left leg, the laceration where the distal tibial shaft was protruding through the skin on the distal aspect of the leg, it is wide and there is necrotic tissue in the area. There is moderate swelling. There is some erythema surrounding the medial aspect of the left leg. The anterior, posterior, and lateral aspect of the leg, ankle, and foot appear very good. There is no foul smell.. LABORATORY DATA: Preliminary Gram stain showed few wbc's, moderate gram-positive cocci in pairs and clusters and few gram-negative rods. Cultures are still pending. Venous Doppler of the left leg was normal and regular. X-rays of left leg shows that the distal tibia and fibula remained in good alignment and the plate and screws are in good position. PLAN: I will ask Wound Care to perform a minor debridement of the necrotic tissue and apply a wound VAC. We will see what the cultures in depth showing, may need to possibly consult Infectious Disease, possibly require long-term IV antibiotics depending on what the cultures show of the bacteria and its susceptibility. Job ID: [id number]
[2019-10-18] MEDS ORDERED: Morphine 4 MG/ML VIAL SLOW IVP PRN (19:12)
[2019-10-18] MEDS: Morphine 4 MG/ML VIAL SLOW IVP PRN (20:04)
[2019-10-19] MEDS: Vancomycin HCl 1.75 GM in Sodium Chloride 0.9% 500 ML IVPB SCH ×2 (00:01→11:39)
[2019-10-19] MEDS: Ampicillin/Sulbactam 3 GM in Sodium Chloride 0.9% 100 ML IVPB SCH ×2 (03:44→11:03)
[2019-10-19 05:51] LABS: #Eosinphils 0.3 thou/uL (0.0-0.7); #Lymphocytes 1.4 thou/uL (1.20-3.40); #Monocytes 0.5 thou/uL (0.11-0.59); #Neutrophils 3.5 thou/uL (1.40-6.50); %Basophils 0.3 % (0.0-1.0); %Eosinophils 5.9 % (0.0-10.0); %Lymphocytes 24.6 % (21.0-51.0); %Monocytes 8.3 % (0.0-10.0); %Neutrophils 60.9 % (42.0-75.0); Hemoglobin 10.9 g/dL (14.0-18.0); Mean Corpuscular HGB CONC 32.5 g/dL (32.0-36.0); Mean Corpuscular Hemoglobin 28.2 pg (27.0-31.0); Mean Corpuscular Volume 86.7 fL (78.0-98.0); Mean Platelet Volume 7.2 fL (7.4-10.4); Platelet Count 468 thou/uL (130-400); RBC Distribution Width 12.9 % (11.5-14.5); Red Blood Cell (RBC) Count 3.85 mill/uL (4.70-6.10); White Blood Cell (WBC) Count 5.7 thou/uL (4.8-10.8)
[2019-10-19 06:14] LABS: Anion Gap 10 mmol/L (10-20); BUN (Urea Nitrogen) 10 mg/dL (8.4-25.7); Calc. Creatinine Clearance 142 mL/min (70-130); Calcium 9.5 mg/dL (7.8-10.44); Carbon Dioxide 30 mmol/L (23-31); Chloride 107 mmol/L (98-107); Estimated GFR-MDRD Greater than 90; Glucose 100 mg/dL (80-115); Potassium 4.4 mmol/L (3.5-5.1); Sodium 143 mmol/L (136-145)
[2019-10-19] MEDS: Morphine 4 MG/ML VIAL SLOW IVP PRN ×3 (07:46→20:43)
[2019-10-19] MEDS: Polyethylene Glycol 3350 17 GM Packet PO SCH (07:54)
[2019-10-19] MEDS: Enoxaparin Sodium 30 MG/0.3 ML SYRINGE SC SCH (07:55)
--- NOTE | 2019-10-19 10:08 | PRG ---
DATE OF SERVICE: 10/19/2019 SUBJECTIVE: The patient is seen and examined at the bedside. He just came back from the shower. He took a shower this morning. He feels better. The pain is bearable since he had his pain medications this morning, which is hydrocodone. OBJECTIVE: VITAL SIGNS: Blood pressure is 131/68, pulse is 78, respiratory rate is 20, temperature is 98.0, maximal temperature for the last 24 hours is 98.2, O2 saturation is 94% on room air. HEENT: Head is atraumatic and normocephalic. Eyes are PERRLA. Sclerae are nonicteric. Oral mucosa is moist. NECK: Supple. LUNGS: Clear. HEART: S1 and S2 normal. No S3. No S4. No any murmur. ABDOMEN: Soft, nontender, nondistended. EXTREMITIES: There is some erythema surrounding the medial aspect of the left leg. NEUROLOGIC: He is alert and oriented x4. There is no any motor or sensory deficits. LABORATORY DATA: Labs showed white count of 5.7, hemoglobin 10.9, hematocrit 33.4, platelet count is 468. Normal chemistry. C-reactive protein 2.4. IMPRESSION: 1. Left tibial fracture, status post open reduction and internal fixation with wound cellulitis and dry gangrene. 2. Hypertension. PLAN: We are going to continue current regimen with broad-spectrum antibiotics. We have preliminary report on his leg discharge, which is presumptive pseudo aeruginosa, but we are going to wait until final culture is done and sensitivity is present. For now, we will continue his pain management with hydrocodone and antibiotic regimen of vancomycin and Unasyn, and Wound Care is consulted and Dr. Prince saw the patient yesterday and he requested a wound VAC. This will be done today. Job ID: [id number]
--- NOTE | 2019-10-19 11:47 | PRG ---
DATE OF SERVICE: 10/19/2019 Mr. Reardon states that his leg is feeling better. There is less drainage from the wound. The patient has been afebrile thus far while he has been in the hospital. Vital signs are stable. The patient has some necrotic tissue on the medial aspect of the left lower leg. There is no significant erythema. There is mild swelling. The left lower extremity is neurovascularly intact. Culture so far shows Pseudomonas aeruginosa. His chemistries are normal. CBC is decreasing. His initial sed rate was 46. The patient will continue with IV antibiotics. Await on cultures. See what best course for the patient would be as far as antibiotics whether be IV, in which case we would have to start a PICC line, versus p.o. We will have wound care apply wound VAC and we will continue to follow. Job ID: [id number]
[2019-10-19] MEDS: Piperacillin/Tazobactam 3.375 GM in Sodium Chloride 0.9% 100 ML IVPB SCH ×2 (14:21→19:36)
[2019-10-19 22:43] LABS: Vancomycin, Trough 11.7 ug/mL
[2019-10-19] MEDS: Vancomycin HCl 1.25 GM in Sodium Chloride 0.9% 250 ML 250 ML IVPB SCH (23:17)
[2019-10-20] MEDS: Piperacillin/Tazobactam 3.375 GM in Sodium Chloride 0.9% 100 ML IVPB SCH ×4 (01:35→20:21)
[2019-10-20] MEDS: Morphine 4 MG/ML VIAL SLOW IVP PRN ×3 (04:54→19:25)
[2019-10-20] MEDS: Enoxaparin Sodium 30 MG/0.3 ML SYRINGE SC SCH (08:43)
[2019-10-20] MEDS: Polyethylene Glycol 3350 17 GM Packet PO SCH (08:44)
[2019-10-20] MEDS: HYDROcodone/Acetaminophen 5/325 mg Tablet PO PRN ×2 (08:55→14:31)
[2019-10-20] MEDS: Vancomycin HCl 1.25 GM in Sodium Chloride 0.9% 250 ML 250 ML IVPB SCH ×3 (09:44→23:57)
[2019-10-20] MEDS ORDERED: traMADol HCl 50 MG TAB PO PRN (10:09)
--- NOTE | 2019-10-20 10:38 | PRG ---
DATE OF SERVICE: 10/20/2019 SUBJECTIVE: The patient is seen and examined at the bedside. He feels significantly better. He has some pain, but that is improved. No fever. OBJECTIVE: VITAL SIGNS: Blood pressure is 122/65, pulse is 78, respiratory rate is 17, temperature is 98.5, O2 saturation is 95% on room air. HEENT: His head is atraumatic and normocephalic. Eyes are PERRLA. Sclerae are nonicteric. Oral mucosa is moist. NECK: Supple. LUNGS: Clear. HEART: S1 and S2 normal. No S3. No S4. No any murmur. ABDOMEN: Soft, nontender. EXTREMITIES: Left ankle is wrapped. NEUROLOGIC: He follows my commands. He moves his all 4 extremities. There is no any motor or sensory deficits. LABORATORY DATA: Labs showed culture of the left lower extremity wound shows many presumptive Pseudo aeruginosa. Blood cultures x2 negative. Vancomycin trough 11.7. IMPRESSION: 1. Left tibial fracture, status post open reduction and internal fixation with wound cellulitis. 2. Hypertension. PLAN: The patient is growing probably Pseudomonas. His Unasyn was changed to Zosyn yesterday. We will continue vancomycin. Wound care and Ortho on the case. Apparently, there is a question about whether he can have wound VAC since he still has some infection and the wound care team is waiting for debridement of the area by Ortho. We will continue current regimen, pain management. Job ID: [id number]
[2019-10-20] MEDS: Acetaminophen 500 MG TAB PO SCH ×3 (11:51→23:57)
--- NOTE | 2019-10-20 18:23 | PRG ---
DATE OF SERVICE: 10/20/2019 SUBJECTIVE: Mr. Reardon has no new complaints. OBJECTIVE: VITAL SIGNS: The patient has remained afebrile during the hospital course. Physical exam of the left leg shows the necrotic tissue over the medial aspect of the leg. An I and D tray were used, and the necrotic tissue was sharply debrided in the room down to bleeding tissue. This did expose a portion of the plate that is on the distal medial aspect of the tibia. Proximally, 1 inch x 1 inch of the plate is visible. There is no erythema around the open wound and minimal active drainage. Cultures have grown Pseudomonas aeruginosa and presumptive of the Enterococcus species. Sensitivities on the enterococcus species are pending. PLAN: The wound was as stated above, debrided. Sterile dressing was applied. We will see what the cultures, sensitivities end up showing us decide if he needs to be on either p.o. or IV antibiotics. It is possible that I may need to take the patient back to the OR for more definitive irrigation and debridement, but for now I want to see how the wound heals and if the plate can be covered by his own healing tissue. Job ID: [id number]
[2019-10-20] MEDS: Aspirin 325 MG TAB PO SCH (20:17)
[2019-10-20] MEDS: Hydrochlorothiazide 25 MG TAB PO SCH (20:18)
[2019-10-20] MEDS: Losartan 25 MG TAB PO SCH (20:19)
[2019-10-20] MEDS: Gabapentin 300 MG CAP PO SCH (20:20)
[2019-10-20] MEDS: Escitalopram Oxalate 20 mg Tablet PO SCH (20:21)
[2019-10-20] MEDS ORDERED: DEXTROAMPHETAMINE PO SCH (21:00)
[2019-10-20] MEDS ORDERED: AMPHETAMINE PO SCH (21:00)
[2019-10-20] MEDS ORDERED: Non-Formulary Item 1 EACH (Losartan/Hydrochlorothiazide [Losartan-Hctz 100-12.5 Mg Tab] 1 PO SCH (21:00)
[2019-10-20] MEDS ORDERED: Dextroamphetamine/Amphetamine [Adderall] 30 MG PO SCH (21:00)
[2019-10-20 23:52] LABS: Vancomycin, Trough 14.5 ug/mL
[2019-10-21] MEDS: Piperacillin/Tazobactam 3.375 GM in Sodium Chloride 0.9% 100 ML IVPB SCH ×4 (02:27→20:47)
[2019-10-21 05:33] LABS: #Eosinphils 0.4 thou/uL (0.0-0.7); #Lymphocytes 1.3 thou/uL (1.20-3.40); #Monocytes 0.4 thou/uL (0.11-0.59); %Basophils 0.4 % (0.0-1.0); %Eosinophils 8.1 % (0.0-10.0); %Lymphocytes 25.3 % (21.0-51.0); %Monocytes 8.4 % (0.0-10.0); %Neutrophils 57.8 % (42.0-75.0); Hemoglobin 10.9 g/dL (14.0-18.0); Mean Corpuscular HGB CONC 31.8 g/dL (32.0-36.0); Mean Corpuscular Hemoglobin 27.7 pg (27.0-31.0); Mean Corpuscular Volume 87.3 fL (78.0-98.0); Platelet Count 414 thou/uL (130-400); Red Blood Cell (RBC) Count 3.92 mill/uL (4.70-6.10); White Blood Cell (WBC) Count 5.3 thou/uL (4.8-10.8)
[2019-10-21 05:52] LABS: Anion Gap 11 mmol/L (10-20); BUN (Urea Nitrogen) 9 mg/dL (8.4-25.7); Calc. Creatinine Clearance 139 mL/min (70-130); Calcium 9.5 mg/dL (7.8-10.44); Carbon Dioxide 30 mmol/L (23-31); Chloride 105 mmol/L (98-107); Estimated GFR-MDRD Greater than 90; Glucose 107 mg/dL (80-115); Potassium 4.3 mmol/L (3.5-5.1); Sodium 142 mmol/L (136-145)
[2019-10-21] MEDS: Acetaminophen 500 MG TAB PO SCH ×3 (06:10→16:36)
[2019-10-21] MEDS: HYDROcodone/Acetaminophen 5/325 mg Tablet PO PRN ×3 (08:17→20:48)
[2019-10-21] MEDS: Rosuvastatin 10 MG TAB PO SCH (08:20)
[2019-10-21] MEDS: Allopurinol 100 MG TAB PO SCH (08:21)
[2019-10-21] MEDS: Thyroid 30 MG TAB PO SCH (08:21)
[2019-10-21] MEDS: Aspirin 325 MG TAB PO SCH ×2 (08:21→20:47)
[2019-10-21] MEDS: Gabapentin 300 MG CAP PO SCH ×2 (08:21→20:51)
[2019-10-21] MEDS: Naproxen 500 MG TAB PO SCH (08:22)
[2019-10-21] MEDS: Vancomycin HCl 1.25 GM in Sodium Chloride 0.9% 250 ML 250 ML IVPB SCH ×2 (08:22→15:57)
[2019-10-21] MEDS: Polyethylene Glycol 3350 17 GM Packet PO SCH (08:23)
[2019-10-21] MEDS: Enoxaparin Sodium 30 MG/0.3 ML SYRINGE SC SCH (08:34)
[2019-10-21] MEDS ORDERED: Non-Formulary Item 1 EACH (Naproxen [Naproxen] 250 MG) PO SCH (09:00)
--- NOTE | 2019-10-21 10:21 | PDOC.HOSPP ---
- Subjective Encounter Date: 10/21/19 Encounter Time: 13:30 Subjective: Patient without complaints. Had I&D of wound yesterday. No fever/chills. No N/V/ SOB. - Objective Vital Signs & Weight: Vital Signs (12 hours) Temp Pulse Resp BP Pulse Ox 10/21/19 08:01 98.2 F 73 20 132/81 99 Weight Admit Weight 220 lb Weight 220 lb I&O: 10/20/19 10/21/19 10/22/19 06:59 06:59 06:59 Intake Total 1250 Output Total 1200 Balance 50 Result Diagrams: 10/21/19 05:19 10/21/19 05:18 Hospitalist ROS - Review of Systems Constitutional: denies: fever, chills Respiratory: denies: cough, dry, shortness of breath Cardiovascular: denies: chest pain, palpitations, orthopnea, paroxysmal noc. dyspnea Gastrointestinal: denies: nausea, vomiting, abdominal pain - Medication Medications: Active Medications Generic Name Dose Route Start Last Admin Trade Name Freq PRN Reason Stop Dose Admin Acetaminophen 1,000 mg 10/20/19 12:00 10/21/19 06:10 Tylenol PO Not Given Q6HR MARTI Hydrocodone Bitart/Acetaminophen 1 tab 10/18/19 07:02 10/21/19 08:17 [place] 5/325 PO 1 tab Q4H PRN Administration Mild Pain (1-3) Allopurinol 100 mg 10/21/19 09:00 10/21/19 08:21 Zyloprim PO 100 mg DAILY MARTI Administration Aspirin 325 mg 10/20/19 21:00 10/21/19 08:21 Aspirin PO 325 mg BID MARTI Administration Enoxaparin Sodium 30 mg 10/19/19 09:00 10/21/19 08:34 Lovenox SC 30 mg 0900 MARTI Administration Escitalopram Oxalate 20 mg 10/20/19 21:00 10/20/19 20:21 Lexapro PO 20 mg HS MARTI Administration Gabapentin 300 mg 10/20/19 21:00 10/21/19 08:21 Neurontin PO 300 mg BID MARTI Administration Hydrochlorothiazide 12.5 mg 10/20/19 21:00 10/20/19 20:18 Hydrochlorothiazide PO 12.5 mg HS MARTI Administration Piperacillin Sod/Tazobactam 100 mls @ 200 mls/hr 10/19/19 14:00 10/21/19 08: 20 Sod 3.375 gm/ Sodium Chloride IVPB 100 mls 0200,0800,1400,2000 MARTI Administration Vancomycin HCl 1.25 gm/ Sodium 250 mls @ 166.667 mls/hr 10/19/19 23:59 08:22 Chloride IVPB 250 mls 0800,1600,2359 MARTI Administration Losartan Potassium 100 mg 10/20/19 21:00 10/20/19 20:19 Cozaar PO 100 mg HS MARTI Administration Morphine Sulfate 4 mg 10/18/19 19:11 10/20/19 19:25 Morphine SLOW IVP 4 mg Q2H PRN Administration Severe Pain (7-10) Naproxen 250 mg 10/21/19 09:00 10/21/19 08:22 Naprosyn PO 250 mg DAILY MARTI Administration Pantoprazole Sodium 40 mg 10/18/19 09:00 10/21/19 08:21 Protonix PO 40 mg DAILY MARTI Administration Polyethylene Glycol 17 gm 10/18/19 09:00 10/21/19 08:23 Miralax PO Not Given DAILY MARTI Rosuvastatin Calcium 10 mg 10/21/19 09:00 10/21/19 08:20 Crestor PO 10 mg DAILY MARTI Administration Thyroid 30 mg 10/21/19 09:00 10/21/19 08:21 [place] Thyroid PO 30 mg DAILY MARTI Administration - Exam General Appearance: NAD ENT: moist mucosa Heart: RRR, no murmur, no gallops, no rubs Respiratory: CTAB, no wheezes, no rales, no ronchi Gastrointestinal: soft, non-tender, non-distended, normal bowel sounds Extremities - other findings: left ankle with dressing in place, small amount of serosangenous exudate Neurological: no focal deficits Psychiatric: normal affect, normal behavior, A&O x 3 Hosp A/P (1) Tibial fracture Code(s): S82.209A - UNSP FRACTURE OF SHAFT OF UNSP TIBIA, INIT FOR CLOS FX Status: Acute Qualifiers: Laterality: left (2) Cellulitis Code(s): L03.90 - CELLULITIS, UNSPECIFIED Status: Acute (3) Hypertension Code(s): I10 - ESSENTIAL (PRIMARY) HYPERTENSION Status: Chronic (4) Anxiety Code(s): F41.9 - ANXIETY DISORDER, UNSPECIFIED Status: Chronic (5) PTSD (post-traumatic stress disorder) Code(s): F43.10 - POST-TRAUMATIC STRESS DISORDER, UNSPECIFIED Status: Chronic - Plan continue antibiotics Cellulitis and Wound infection- growing pseudomonas sensitive to FQ and Enterococcus sensitive to ampicillin On Zosyn and Vanc currently S/p wound debridement by ortho, plate exposed, waiting to see if tissue will grow over and cover Decision on abx and length of treatment per ortho
[2019-10-21] MEDS: Hydrochlorothiazide 25 MG TAB PO SCH (20:49)
[2019-10-21] MEDS: Losartan 25 MG TAB PO SCH (20:50)
[2019-10-21] MEDS: Escitalopram Oxalate 20 mg Tablet PO SCH (20:51)
[2019-10-22] MEDS: Morphine 4 MG/ML VIAL SLOW IVP PRN ×2 (00:05→07:55)
[2019-10-22] MEDS: Acetaminophen 500 MG TAB PO SCH ×3 (00:25→11:03)
[2019-10-22] MEDS: Vancomycin HCl 1.25 GM in Sodium Chloride 0.9% 250 ML 250 ML IVPB SCH ×2 (00:31→09:40)
[2019-10-22] MEDS: HYDROcodone/Acetaminophen 5/325 mg Tablet PO PRN ×3 (01:43→12:17)
[2019-10-22] MEDS: Piperacillin/Tazobactam 3.375 GM in Sodium Chloride 0.9% 100 ML IVPB SCH ×2 (02:12→07:56)
[2019-10-22 06:17] LABS: Anion Gap 11 mmol/L (10-20); BUN (Urea Nitrogen) 11 mg/dL (8.4-25.7); Calc. Creatinine Clearance 129 mL/min (70-130); Calcium 9.2 mg/dL (7.8-10.44); Carbon Dioxide 29 mmol/L (23-31); Chloride 106 mmol/L (98-107); Estimated GFR-MDRD Greater than 90; Glucose 99 mg/dL (80-115); Potassium 4.3 mmol/L (3.5-5.1); Sodium 142 mmol/L (136-145)
[2019-10-22 06:23] LABS: #Eosinphils 0.4 thou/uL (0.0-0.7); #Lymphocytes 1.7 thou/uL (1.20-3.40); #Monocytes 0.5 thou/uL (0.11-0.59); #Neutrophils 2.8 thou/uL (1.40-6.50); %Basophils 0.7 % (0.0-1.0); %Eosinophils 7.8 % (0.0-10.0); %Lymphocytes 30.9 % (21.0-51.0); %Monocytes 8.5 % (0.0-10.0); %Neutrophils 52.1 % (42.0-75.0); Hemoglobin 10.4 g/dL (14.0-18.0); Mean Corpuscular HGB CONC 29.7 g/dL (32.0-36.0); Mean Corpuscular Hemoglobin 25.7 pg (27.0-31.0); Mean Corpuscular Volume 86.5 fL (78.0-98.0); Mean Platelet Volume 7.3 fL (7.4-10.4); Platelet Count 389 thou/uL (130-400); RBC Distribution Width 12.9 % (11.5-14.5); Red Blood Cell (RBC) Count 4.03 mill/uL (4.70-6.10); White Blood Cell (WBC) Count 5.4 thou/uL (4.8-10.8)
[2019-10-22] MEDS: Rosuvastatin 10 MG TAB PO SCH (08:03)
[2019-10-22] MEDS: Naproxen 500 MG TAB PO SCH (08:03)
[2019-10-22] MEDS: Thyroid 30 MG TAB PO SCH ×2 (08:03→08:04)
[2019-10-22] MEDS: Aspirin 325 MG TAB PO SCH (08:04)
[2019-10-22] MEDS: Polyethylene Glycol 3350 17 GM Packet PO SCH (08:04)
[2019-10-22] MEDS: Gabapentin 300 MG CAP PO SCH (08:04)
[2019-10-22] MEDS: Allopurinol 100 MG TAB PO SCH (08:04)
[2019-10-22] MEDS: Enoxaparin Sodium 30 MG/0.3 ML SYRINGE SC SCH (08:04)
[2019-10-22 12:26] VITALS: BP 145/66; TEMP 98.1
--- NOTE | 2019-10-23 12:43 | DIS ---
DATE OF ADMISSION: 10/18/2019 DATE OF DISCHARGE: 10/22/2019 DISCHARGE DISPOSITION: To home. PRIMARY DISCHARGE DIAGNOSES AND BRIEF COURSE: Left lower leg cellulitis with necrotic ulcer status post debridement by Dr. Levin. Recent open distal left tibia and fibula fracture with open reduction and internal fixation done on 10/02/[address] Levin. He also had sustained a right calcaneal fracture and was nonweightbearing on both feet. The patient got admitted with ulceration of the recent surgical site with necrotic eschar. He has had sharp debridement done by Dr. Levin. He was on IV antibiotics and has been transitioned to ampicillin and Levaquin for a total duration of [address] Levin advice. His wound cultures grew Pseudomonas and Enterococcus, both sensitive for the above antibiotics. Blood cultures x2 were negative. He has otherwise remained hemodynamically stable and will be shortly discharged home. Please note, I have seen and examined the patient on the day of discharge. PROCEDURES DONE DURING HOSPITALIZATION: Blood cultures x2, no growth. Left leg wound cultures grew Pseudomonas and Enterococcus sensitive to ampicillin and Levaquin. Had a white count of 5.5, H and H 10 and 34, platelet count 389. BUN 11 and creatinine 0.8. CRP 2.4. Left lower extremity ultrasound venous Doppler done showed no evidence of DVT. Left ankle three view plain x-ray done showed no evidence of osteomyelitis. DISCHARGE MEDICATIONS: 1. Allopurinol 100 mg p.o. daily. 2. Adderall 30 mg twice daily. 3. Lexapro 20 mg p.o. at bedtime. 4. Losartan with hydrochlorothiazide 100/12.5 mg p.o. at bedtime. 5. Crestor 10 mg p.o. daily. 6. Thyroid Pork 30 mg p.o. daily. 7. Ampicillin 500 mg p.o. 3 times daily for a total duration of 4 weeks. 8. Aspirin 325 mg p.o. twice daily for DVT prophylaxis. 9. Gabapentin 300 mg p.o. twice daily. 10. Levaquin 500 mg p.o. daily for 4 weeks. 11. Protonix 40 mg daily. 12. MiraLAX 17 g daily. 13. Ultram 50 mg p.o. q.6 hourly p.r.n. ALLERGIES: NO KNOWN DRUG ALLERGIES. DISCHARGE PLAN: The patient will be following up with Dr. Levin on 2019 in the afternoon. He needs to follow up with his primary care physician in 1 week. Job ID: [id number] [email or web address]
--- NOTE | 2019-10-23 22:34 | PQF ---
[employer] Operator Crystal Reports Winform ViewerGERMANIA LOVE WADE W MD [id number] [facility] [id number] CLINICAL DOCUMENTATION CLARIFICATION FORM: POST DISCHARGE Addendum to original discharge summary date: ____ Late entry note date: __ DATE: 10/23/19 ATTN:Rajat Levin Please exercise your independent, professional judgment in responding to the clarification form. Clinical indicators are provided on the bottom of this form for your review Please check appropriate box(s): [ ] Excisional Debridement: [ ] Excised [ ] Cut away [ ] Other: Depth / layer: (deepest layer of debridement): [ ] Skin[ ] SubQ Tissue [ ] Fascia [ ] Muscle [ ] Tendon [ ] Bone Appearance of wound: (e.g., down to fresh bleeding tissue, etc.)___ Margins: (please specify): / x x Instruments used: [ ] Scissors [ ] Scalpel [ ] Curette [ ] Soft tissue clipper [ ] Other: [ ] Non-excisional Debridement: (Removal by flushing, brushing, chemical, or washing) Depth / layer: (deepest layer of debridement): [ ] Skin[ ] Subcutaneous [ ] Fascia [ ] Muscle [ ] Tendon [ ] Bone [ ] Incision and Drainage only (No Debridement): Depth:[ ] Skin [ ] Subcutaneous [ ] Fascia [ ] Muscle [ ] Tendon [ ] Bone [ ] Escharectomy [ ] Other procedure diagnosis [ ] Unable to determine For continuity of documentation, please document condition throughout progress notes and discharge summary. Thank You. CLINICAL INDICATORS - SIGNS / SYMPTOMS / LABS PN 10/20 pg.1- left leg necrotic tissue over the medial aspect of the leg PN 10/20 pg.1- necrotic tissue was sharply debrided in the room down to bleeding tissue PN 10/20 pg.1- This expose a portion of the plate that is visible Hospitalist PN 10/21 pg.6- s/p wound debridement RISK FACTORS wound dehiscence- H and P pg.1 HTN- H and P pg.4 Cellulitis- H and P pg.4 Left tibia fracture s/p ORIF- H and P pg.4 Dry gangrene- H and P pg.4 Wound Infection Hospitalist PN TREATMENTS: Vascular ultrasound 10/18 IV antibiotics- NOV I and D PN 10/20 IV fluifd- NOV Ankle X ray 10/17 (This form is maintained as a part of the permanent medical record) 2014 [employer]. All Rights Reserved [email or web address]
--- NOTE | 2019-10-24 01:00 | PQF ---
[employer] Field Mechanic/Site Lead Crystal Reports Winform Viewer [place]ER[place] LOVE VINAYA KUMAR [id number] [facility] [id number] CLINICAL DOCUMENTATION CLARIFICATION FORM: POST DISCHARGE Addendum to original discharge summary date: ____ Late entry note date: __ DATE: 10/24/19 ATTN: Willy Castelan Please exercise your independent, professional judgment in responding to the clarification form. Clinical indicators are provided on the bottom of this form for your review Please check appropriate box(s): Conflicting documentation was noted in the Medical Record, please clarify if patient is being treated/monitored for: [ ] Post Operative wound dehiscence [ ] Post Operative wound infection [ ] Other diagnosis please specify __patient had open fracture prior to surgery and had infected wound in the same area, if you need more information please contact his orthopedic surgeon. His prior surgery was at another hospital. [ ] Unable to determine In addition, please specify: Present on Admission (POA): [ ] Yes [ ] No [ ] Unable to determine For continuity of documentation, please document condition throughout progress notes and discharge summary. Thank You. CLINICAL INDICATORS - SIGNS / SYMPTOMS/ LABS DS pg.1- left lower leg cellulitis with necrotic ulcer s/p debridement ED Provider pg.4- surgical wound infection H and P pg.1- wound dehiscence Consult pg.1- left leg, the laceration where the distal tibia shaft was protruding through the skin on the distal aspect of the leg Hospitalist PN pg.6 - cellulitis and wound infection RISK FACTORS Cellulitis- H and P pg.4 Left tibia fracture s/p ORIF- H and P pg.4 Dry gangrene- H and P pg.4 HTN- H and P pg.4 TREATMENT Vascular ultrasound 10/18 IV antibiotics- MAR I and D PN 10/20 IV fluids- NOV Ankle X ray 10/17 Wound Culture- Microbiology (This form is maintained as a part of the permanent medical record) 2014 [employer] All Rights Reserved [email or web address]
--- NOTE | 2019-10-26 16:49 | PQF ---
[employer] Sql Database Administrator Crystal Reports Winform ViewerKNGERMANIA GOLDEN WADE W MD [id number] [facility] [id number] CLINICAL DOCUMENTATION CLARIFICATION FORM: POST DISCHARGE Addendum to original discharge summary date: ____ Late entry note date: __ DATE: 10/26/19 ATTN: Rajat Cohen Please exercise your independent, professional judgment in responding to the clarification form. Clinical indicators are provided on the bottom of this form for your review Please check appropriate box(s): Conflicting documentation was noted in the Medical Record, please clarify if patient is being treated/monitored for: [ ] Post Operative wound dehiscence [ ] Post Operative wound infection [ ] Other diagnosis please specify [ ] Unable to determine In addition, please specify: Present on Admission (POA): [ ] Yes [ ] No [ ] Unable to determine For continuity of documentation, please document condition throughout progress notes and discharge summary. Thank You. CLINICAL INDICATORS - SIGNS / SYMPTOMS/ LABS ED Provider pg.4- surgical wound infection H and P pg.1- wound dehiscence Consult pg.1- left leg, the laceration where the distal tibia shaft was protruding through the skin on the distal aspect of the leg Hospitalist PN pg.6 - cellulitis and wound infection DS pg.1- left lower leg cellulitis with necrotic ulcer s/p debridement RISK FACTORS Cellulitis- H and P pg.4 Left tibia fracture s/p ORIF- H and P pg.4 Dry gangrene- H and P pg.4 HTN- H and P pg.4 TREATMENT Vascular ultrasound 10/18 IV antibiotics- NOV I and D PN 10/20 IV fluids- NOV Ankle X ray 10/17 Wound Culture- Microbiology (This form is maintained as a part of the permanent medical record) 2014 [employer]. All Rights Reserved [email or web address]
== END 2019-10-22 13:14 | disposition home or self-care (01) | DRG 863 ==
LOC: ERS 21:57 → ERHOLD 10-18 03:10 → 3SE 10-18 07:52 → T4-A 10-18 16:24
PROVIDERS: ADMIT Internal Medicine; ATTEND Internal Medicine
PROC: 0HDLXZZ Extraction of Left Lower Leg Skin, External Approach (ICD-10-PCS; principal; 2019-10-18)
DX: T81.49XA Infection following a procedure, other surgical site, initial encounter (principal); L03.116 Cellulitis of left lower limb; I96 Gangrene, not elsewhere classified; Y83.8 Other surgical procedures as the cause of abnormal reaction of the patient, or of later complication, without mention of misadventure at the time of the procedure; F43.12 Post-traumatic stress disorder, chronic; B96.5 Pseudomonas (aeruginosa) (mallei) (pseudomallei) as the cause of diseases classified elsewhere; B95.2 Enterococcus as the cause of diseases classified elsewhere; F41.9 Anxiety disorder, unspecified; I10 Essential (primary) hypertension; Z85.46 Personal history of malignant neoplasm of prostate; Z79.899 Other long term (current) drug therapy; Z90.49 Acquired absence of other specified parts of digestive tract; Z79.82 Long term (current) use of aspirin
CPT/HCPCS: 36415; 80048; 80053; 80202; 81003; 83605; 85025; 85652; 86140; 87040; 87070; 87077; 87186; 87205; 96365; 96367; 96375; 96376; J0295; J0690; J0692; J1650; J2270; J2405; J2543; J3370; J3490; J7050

== ENCOUNTER 2019-11-13 12:24 | Observation (INO) | payer MEDICARE ==
[2019-11-10 18:04] VITALS: BMI 32.3
[~2019-11-13 12:24] MED LIST changes: +Bupivacaine HCl 0.5%/Epinephrine 1:200,000/PF 30 ml Vial ONE; +EPHEDRINE 25 MG/5 ML SYRINGE ONE; -Glycopyrrolate 0.2 MG/ML 5 ML SYRINGE ONE; -Iopamidol-370 76% 500 ML 1 ML ONE; +Labetalol HCl 100 MG/20 ML VIAL ONE; -Lidocaine 1% PF 5 ML VIAL ONE; -PHENYLEPHRINE-NS 100 MCG/ML 10 ML SYRINGE ONE; -Rocuronium Bromide 10 MG/ML (10ML VIAL) ONE; -Succinylcholine Chloride 20 MG/ML 10 ml SYRINGE FS ONE
[2019-11-13] MEDS ORDERED: Midazolam HCl 2 mg/2 ml Vial ONE ×2 (12:34→13:16)
[2019-11-13] MEDS ORDERED: Fentanyl 100 MCG/2 ML VIAL ONE ×4 (12:34→16:46)
[2019-11-13] MEDS ORDERED: Neomycin-Polymyxin 1 ML AMP ONE (12:56)
[2019-11-13] MEDS ORDERED: Lidocaine 1% (PF) 30 ML VIAL ONE (12:56)
[2019-11-13] MEDS ORDERED: Morphine 4 MG/ML VIAL ONE (13:12)
[2019-11-13 13:20] LABS: #Eosinphils 0.3 thou/uL (0.0-0.7); #Lymphocytes 1.8 thou/uL (1.20-3.40); #Monocytes 0.5 thou/uL (0.11-0.59); #Neutrophils 4.9 thou/uL (1.40-6.50); %Basophils 0.4 % (0.0-1.0); %Eosinophils 3.5 % (0.0-10.0); %Lymphocytes 23.7 % (21.0-51.0); %Monocytes 6.4 % (0.0-10.0); Hemoglobin 12.1 g/dL (14.0-18.0); Mean Corpuscular HGB CONC 32.2 g/dL (32.0-36.0); Mean Corpuscular Hemoglobin 26.9 pg (27.0-31.0); Mean Corpuscular Volume 83.7 fL (78.0-98.0); Mean Platelet Volume 7.7 fL (7.4-10.4); Platelet Count 394 thou/uL (130-400); RBC Distribution Width 13.2 % (11.5-14.5); White Blood Cell (WBC) Count 7.4 thou/uL (4.8-10.8)
[2019-11-13 13:45] LABS: Anion Gap 14 mmol/L (10-20); BUN (Urea Nitrogen) 16 mg/dL (8.4-25.7); Calc. Creatinine Clearance 142 mL/min (70-130); Calcium 10.1 mg/dL (7.8-10.44); Carbon Dioxide 25 mmol/L (23-31); Chloride 105 mmol/L (98-107); Estimated GFR-MDRD Greater than 90; Glucose 103 mg/dL (80-115); Potassium 4.1 mmol/L (3.5-5.1); Sodium 140 mmol/L (136-145)
--- NOTE | 2019-11-13 16:06 | RAD ---
EXAM: 2 views of the left tibia/fibula HISTORY: Tibia and fibula fractures COMPARISON: 09/29/2019 FINDINGS: The patient is status post ORIF of distal tibia and fibula fractures with plates and screws . No perihardware lucency is seen. IMPRESSION: Status post ORIF of distal left tibia and fibula fractures
[2019-11-13] MEDS ORDERED: Ondansetron PF 4 MG/2 ML Vial IV PRN (16:26)
[2019-11-13] MEDS ORDERED: HYDROcodone/Acetaminophen 10/325 mg Tablet PO PRN ×3 (16:26→16:43)
[2019-11-13] MEDS ORDERED: Morphine 2 MG/ML SYRINGE SLOW IVP PRN (16:26)
[2019-11-13] MEDS ORDERED: Ondansetron HCl/PF 4 MG/2 ML Vial IVP PRN (16:30)
[2019-11-13] MEDS ORDERED: Promethazine HCl 25 MG/ML VIAL IM PRN (16:30)
[2019-11-13] MEDS ORDERED: TETANUS AND DIPHTHERIA TOX/PF 0.5 ML DISP.SYRIN IM SCH (16:30)
[2019-11-13] MEDS ORDERED: Promethazine HCl 25 MG/ML VIAL SLOW IVP PRN (16:30)
[2019-11-13] MEDS ORDERED: Communication Order-Pharmacy FS SCH (16:30)
[2019-11-13] MEDS ORDERED: traMADol HCl 50 MG TAB PO PRN (16:33)
[2019-11-13] MEDS ORDERED: Acetaminophen/Codeine 30-300mg Tablet PO PRN (16:33)
[2019-11-13] MEDS ORDERED: Promethazine HCl 25 MG/ML VIAL ONE (16:54)
[2019-11-13] MEDS ORDERED: Labetalol HCl 100 MG/20 ML VIAL ONE (17:32)
[2019-11-13] MEDS ORDERED: Acetaminophen 500 MG TAB PO SCH (18:00)
[2019-11-13] MEDS: Morphine 4 MG/ML VIAL SLOW IVP PRN (18:58)
[2019-11-13] MEDS: AMPicillin 1 GM in Sodium Chloride 0.9% 100 ML IVPB SCH ×3 (19:50→23:09)
[2019-11-13] MEDS: Aspirin 81 mg Enteric Coated Tablet PO SCH (20:15)
[2019-11-13] MEDS ORDERED: Escitalopram Oxalate 20 mg Tablet PO SCH (21:00)
[2019-11-13] MEDS ORDERED: Non-Formulary Item 1 EACH (Losartan/Hydrochlorothiazide [Losartan-Hctz 100-12.5 Mg Tab] 1 PO SCH (21:00)
[2019-11-13] MEDS ORDERED: AMPHETAMINE PO SCH (21:00)
[2019-11-13] MEDS ORDERED: Hydrochlorothiazide 25 MG TAB PO SCH (21:00)
[2019-11-13] MEDS ORDERED: DEXTROAMPHETAMINE PO SCH (21:00)
[2019-11-13] MEDS ORDERED: Rosuvastatin 10 MG TAB PO SCH (21:00)
[2019-11-13] MEDS ORDERED: Losartan 25 MG TAB PO SCH (21:00)
[2019-11-13] MEDS: HYDROcodone/Acetaminophen 10/325 mg Tablet PO PRN (22:39)
--- NOTE | 2019-11-13 23:29 | OP ---
DATE OF PROCEDURE: 11/13/2019 PREOPERATIVE DIAGNOSIS: The patient is status post open left distal tibia fracture with failure of internal fixation. POSTOPERATIVE DIAGNOSIS: The patient is status post open left distal tibia fracture with failure of internal fixation. PROCEDURES PERFORMED: Removal of hardware on the left distal tibia, irrigation and debridement with Pulsavac, bone grafting of bone defect in the left distal tibia and in the fracture site with open reduction and internal fixation of the left distal tibia and fibula. ANESTHESIA: General. TECHNIQUE: The patient had taken antibiotics previously. He was taken to the operating room and placed in a supine position. Satisfactory general anesthesia was performed. The left lower extremity was sterilely prepped and draped in usual fashion. After exsanguination, tourniquet at the left thigh was raised to 250 mmHg. The medial aspect of the ankle had open wound. The plate was easily visualized. Incision was made through the previous laceration and incision from his previous open fracture, and periosteal elevation was performed on the medial aspect of the tibia. The distal tibial locking plate was removed. There was a bony defect just distal to the fracture in the metaphysis of the distal tibia, and the fracture was also debrided. The wound was then copiously irrigated using antibiotic solution with the Pulsavac. Bone graft material was then morselized and placed in the bony defect in the distal metaphysis, and bone graft was placed into the original fracture and the distal tibia was then internally fixed using an LCP medial distal tibial plate using 2.7 cortical screws as well as 2.7 locking screws, both in the distal aspect of the distal tibia and 3.5 cortical screws in the proximal aspect of the plate in the distal tibial cortex. This provided excellent alignment on the distal tibia with good fixation. An additional incision was made laterally, and the distal fibula was internally fixed using 2.7 cortical screws and then 2.7 locking screws. This provided excellent fixation and alignment of the distal fibular shaft. Fluoroscopy with C-arm was used during the entire procedure to make sure that the plate and screws were in good position more properly. Wounds again were copiously irrigated with antibiotic solution using the high-speed senior materials planner, and the medial wound was closed using #2 Vicryl to pull the skin and the granulation tissue closure together to almost completely cover the plate. The more proximal aspect of the incision was able to be closed using skin nereyda. The lateral wound was closed using #1 Vicryl and then skin was closed with skin nereyda. Sterile dressing with Xeroform, 4x4s, ABD, and Baldemar wrap was applied, and the tourniquet was released. The patient was then awakened, extubated, and transferred to recovery room in stable condition. ESTIMATED BLOOD LOSS: None. COMPLICATIONS: None. TOURNIQUET TIME: 107 minutes. Job ID: [id number]
[2019-11-14] MEDS: AMPicillin 1 GM in Sodium Chloride 0.9% 100 ML IVPB SCH ×4 (01:22→08:34)
[2019-11-14] MEDS: HYDROcodone/Acetaminophen 10/325 mg Tablet PO PRN ×2 (05:22→09:06)
[2019-11-14 08:10] VITALS: BP 120/74; TEMP 98.2
[2019-11-14] MEDS: Aspirin 81 mg Enteric Coated Tablet PO SCH (08:25)
[2019-11-14] MEDS ORDERED: Allopurinol 100 MG TAB PO SCH (09:00)
[2019-11-14] MEDS ORDERED: Polyethylene Glycol 3350 17 GM Packet PO SCH (09:00)
[2019-11-14] MEDS ORDERED: Thyroid 30 MG TAB PO SCH (09:00)
[2019-11-14] MEDS: Morphine 4 MG/ML VIAL SLOW IVP PRN (12:01)
[2019-11-14] MEDS ORDERED: AMPicillin 1 GM in Sodium Chloride 0.9% 100 ML IVPB SCH (14:00)
[2019-11-14] MEDS ORDERED: AMPICILLIN TRIHYDRATE 500 MG PO SCH (15:00)
--- NOTE | 2019-11-15 03:29 | DIS ---
DATE OF ADMISSION: 11/13/2019 DATE OF DISCHARGE: 11/14/2019 HISTORY OF PRESENT ILLNESS: Please see admission history and physical. HOSPITAL COURSE: The patient was brought to the operating room on the day of admission, where he underwent irrigation and debridement of the left distal tibia and removal of hardware, bone graft, and bone defect in the left distal tibia and open reduction and internal fixation of left distal tibia and fibula. The patient was placed in a boot. He was admitted. He was started on IV antibiotics. The patient has a history of infection from the open distal left tibia fracture which grew out Pseudomonas aeruginosa and Enterococcus faecalis, sensitive to Levaquin and ampicillin respectively. The patient has been on p.o. antibiotics per Dr. Singletary. The following day, on the date of discharge, the patient was able to control the pain with p.o. medication, his incisions are looking good, his dressing was changed. The left foot remained neurovascularly intact. DISCHARGE DIAGNOSIS: The patient is status post open left distal tibia fracture with failure of internal fixation. DISCHARGE MEDICATIONS: The patient will continue with his previous home medications includin. Ampicillin 500 mg three times a day. 2. Levaquin 500 mg once a day. He needs to be nonweightbearing and can change the dressing once a day. FOLLOWUP: Follow up in my office in 2 weeks. Job ID: [id number]
[2019-11-15] MEDS ORDERED: Aspirin 325 MG TAB PO SCH (09:00)
== END 2019-11-14 13:30 | disposition home or self-care (01) ==
LOC: SDC 12:24 → SURG A 18:16
PROVIDERS: ADMIT Orthopaedic Surgery; ATTEND Orthopaedic Surgery
PROC: 0QSH04Z Reposition Left Tibia with Internal Fixation Device, Open Approach (ICD-10-PCS; principal; 2019-11-13)
PROC: 0QHK04Z Insertion of Internal Fixation Device into Left Fibula, Open Approach (ICD-10-PCS; 2019-11-13)
PROC: 0QRH07Z Replacement of Left Tibia with Autologous Tissue Substitute, Open Approach (ICD-10-PCS; 2019-11-13)
PROC: 3E0T3BZ Introduction of Anesthetic Agent into Peripheral Nerves and Plexi, Percutaneous Approach (ICD-10-PCS; 2019-11-13)
PROC: 3E0T3BZ Introduction of Anesthetic Agent into Peripheral Nerves and Plexi, Percutaneous Approach (ICD-10-PCS; 2019-11-13)
DX: T84.623A Infection and inflammatory reaction due to internal fixation device of left tibia, initial encounter (principal); T84.127A Displacement of internal fixation device of bone of left lower leg, initial encounter; M21.00 Valgus deformity, not elsewhere classified, unspecified site; B96.5 Pseudomonas (aeruginosa) (mallei) (pseudomallei) as the cause of diseases classified elsewhere; B96.89 Other specified bacterial agents as the cause of diseases classified elsewhere; S82.392B Other fracture of lower end of left tibia, initial encounter for open fracture type I or II; G89.18 Other acute postprocedural pain; I10 Essential (primary) hypertension; E07.9 Disorder of thyroid, unspecified; Z79.2 Long term (current) use of antibiotics; Z79.82 Long term (current) use of aspirin; Z79.899 Other long term (current) drug therapy; Z96.82 Presence of neurostimulator; Z98.1 Arthrodesis status
CPT/HCPCS: 27828; 27899; 64445; 64447; 73590; 76000; 80048; 85025; 96365; 96366; 96375; 96376; 97139 ×3; 97542; C1713; G0378 ×2; J0290; J0670; J0690; J1100; J2001; J2250; J2270; J2405; J2550; J2704; J3010; J3490